=== PATIENT | female | born 1980 | race Two or more races ===

== ENCOUNTER 2019-09-11 23:29 | Emergency (ER) | payer OTHER ==
[~2019-09-11] VITALS: Ht 172.7 cm; Wt 77.1 kg
[2019-09-12] MEDS ORDERED: IBU800 MG PO (01:36)
== END 2019-09-12 01:56 | disposition home or self-care (01) ==
LOC: ER 23:29
DX: S83.8X1A Sprain of other specified parts of right knee, initial encounter (principal); W01.198A Fall on same level from slipping, tripping and stumbling with subsequent striking against other object, initial encounter; Y93.89 Activity, other specified; Y92.018 Other place in single-family (private) house as the place of occurrence of the external cause; Y99.8 Other external cause status

== ENCOUNTER 2022-10-27 08:06 | Outpatient (CLI) | payer OTHER ==
[~2022-10-27 08:06] MED LIST: IBU800 MG PO
== END 2022-10-27 09:06 | disposition home or self-care (01) ==
LOC: PRENATAL 08:06
PROVIDERS: ATTEND Obstetrics & Gynecology Maternal & Fetal Medicine
DX: O35.9XX0 Maternal care for (suspected) fetal abnormality and damage, unspecified, not applicable or unspecified (principal); O35.3XX0 Maternal care for (suspected) damage to fetus from viral disease in mother, not applicable or unspecified; Z3A.20 20 weeks gestation of pregnancy

== ENCOUNTER 2023-01-22 15:48 | Outpatient (CLI) | payer OTHER | END 2023-01-22 17:25 | disposition home or self-care (01) | LOC: PRENATAL 15:48 | PROVIDERS: ATTEND Obstetrics & Gynecology Maternal & Fetal Medicine | DX: O26.849 Uterine size-date discrepancy, unspecified trimester (principal); O35.3XX0 Maternal care for (suspected) damage to fetus from viral disease in mother, not applicable or unspecified; O36.8199 Decreased fetal movements, unspecified trimester, other fetus; O09.529 Supervision of elderly multigravida, unspecified trimester; Z3A.33 33 weeks gestation of pregnancy ==